=== PATIENT | female | born 1970 | race Hispanic/Latino ===

== ENCOUNTER → 2017-11-25 | Outpatient (CLI) | payer OTHER ==
--- NOTE | 2017-11-25 12:38 | Diagnostic Imaging Report ---
PROCEDURE: L-SPINE COMPLETE COMPARISON: None. INDICATIONS: LOW BACK PAIN FINDINGS: The lumbar spine is in anatomic alignment without evidence of fracture, spondylolisthesis or spondylolysis. There is disc space narrowing at L5-S1. The paraspinal soft tissues are normal. Vascular calcification is noted. CONCLUSION: Disc space narrowing at L5-S1. William Bennett D.O. Dictated by: William Bennett D.O. on 11/25/2017 at 12:39 Electronically approved by: William Bennett D.O. on 11/25/2017 at 12:39
--- NOTE | 2017-11-25 13:17 | Diagnostic Imaging Report ---
PROCEDURE:SACRUM X-RAY-3 views COMPARISON:None. FINDINGS:Joint space narrowing at L5-S1. No fracture or erosions. There is no lytic or blastic process. CONCLUSION:Joint space narrowing at L5-S1. William Bennett D.O. Dictated by: William Bennett D.O. on 11/25/2017 at 13:19 Electronically approved by: William Bennett D.O. on 11/25/2017 at 13:19
== END ==
LOC: RAD 10:34
PROVIDERS: ATTEND Internal Medicine
DX: M54.42 Lumbago with sciatica, left side (principal)
CPT/HCPCS: 72110; 72220